=== PATIENT | male | born 1940 | race Caucasian/White ===

== ENCOUNTER → 2017-02-10 | Outpatient (CLI) | payer MEDICARE ==
--- NOTE | 2017-02-12 12:58 | SLEEP ---
DATE OF STUDY: 02/10/2017 ATTENDING PHYSICIAN: Dr. Raleigh Shook. The patient is a 76-year-old who weighs 190 pounds with a BMI of 29. The patient's [place] score was 7. Sleep study was performed at [facility]. During the night study, the patient spent 443 minutes in bed and slept for 355 minutes with a sleep efficiency of 80%. Sleep latency was 44 minutes with a REM latency of 48 minutes. Overall, sleep architecture showed increased stage I and stage II sleep, normal slow wave, and normal REM sleep. During the night of the study, the patient had no obstructive central or mixed apneas. There were no hypopneas. The patient's apnea hypopnea index was 0 per hour. Supine index was 0 per hour, and REM index was 0 per hour as well. Review of nocturnal oximetry study revealed a mean oxygen saturation 93% with the lowest of 91%. PLMS were seen at index of 2 per hour. None caused EEG arousals. The patient had muscles fasciculations throughout the study. Mean heart rate was 66 beats per minute. Normal sinus rhythm. No sustained arrhythmias were observed. IMPRESSION: 1. No clinically significant sleep disorder breathing. The patient's apnea-hypopnea index for the entire night was 0 per hour. 2. No clinically significant nocturnal hypoxia. 3. No clinically significant periodic limb movements during sleep. RECOMMENDATIONS: 1. The patient did not meet the criteria for CPAP initiation. 2. Avoid [employer] depressants. DEMI MERINO MD DR: KAITLIN/aureliano JOB#: [id number] / [id number]
== END | disposition home or self-care (01) ==
LOC: SLPLAB 18:35
PROVIDERS: ATTEND Family Medicine
DX: G47.33 Obstructive sleep apnea (adult) (pediatric) (principal)
CPT/HCPCS: 95810

== ENCOUNTER → 2018-12-23 | Outpatient (CLI) | payer MEDICARE ==
[~2018-12-23] MED LIST: ASCO10002 PO; ASPI81TA50 PO; ATOR40TA59 PO; B&C/1TAB2 PO; HYDR12.575 PO; IOHEXOL 180 MG/ML 10 ML VIAL. ONE; MECO10002 SL; MELA3TAB2 PO; METO-239 PO; MIRA50TA PO; MULT-697 PO; NITR0.6T4 SL; OMEP40CA5 PO; TRIA10.8 NS; [UNRECOGNIZED DRUG - CODE] PO; colon health; methylPREDNISolone ACETATE 40 MG/ML VIAL. ONE; methylPREDNISolone ACETATE 80 MG/ML VIAL. ONE; super b complex; tylenol arthritis PO
--- NOTE | 2018-12-24 04:31 | PAIN ---
DATE OF SERVICE: 12/23/2018 CHIEF COMPLAINT: Low back and right lower extremity pain. HISTORY OF PRESENT ILLNESS: This is a 78-year-old male who presents with history of pain in the low back, right lower extremity for about 6-8 weeks. He has had some low back pain on and off over the years, but he has significant dental procedure done was having some teeth extracted in preparation for dentures fitted and was in lying upside down for the most part by his description in a dental chair for about 4 hours and the patient reports after that time, he has significant pain in the back and radiating to the right posterior gluteus, posterior thighs, some in the calf as well with some tingling in the right foot. The patient reports it comes around the front as well in the groin at times, but mostly in the back and right leg. The patient reports it is intermittent in intensity, worse with standing, walking, standing on hard floors or changing positions, better with sitting or lying down, makes him gets up about once at night, does not affect his bowel or bladder control significantly with no incontinence and does affect his ability to walk at times, but not all the time. 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 The patient reports this has decreased his ability to perform the dancing as well as walking with greater ease but he is still doing his best to his ability. The patient has had some chiropractic treatment recently and reports it did help to a moderate extent, had no other physical therapies or other formal therapies at this time. The patient has tried Tylenol [id number], which helps to about 20% and took some morning as well. The patient describes the pain as constant, sharp, sometimes stabbing and radiating, intermittent in intensity in the right leg. The patient reports no loss of motor function, but significant fatigability of the right leg compared to the left with ambulation. The patient did have an MRI scan of the lumbar spine showing L4-L5 neural foraminal stenosis and lateral recesses at L5-S1 shows circumferential bulging annulus greater disk osteophyte complex along the lateral recess on the right with effacement of the exiting L5 nerve root and abutment of the right and left L5 nerve roots noted as well. His disability 0-10, 10 being the worst, is a 7 with family home responsibilities and recreation, 6 with social activity, 5 with sexual behavior, 1 with self-care and 1 with life support activities. PAST MEDICAL HISTORY: Significant for hypertension, coronary artery disease, Melvin's esophagus, dizziness, arthritis, kidney stones, skin cancers, prostate cancer. PREVIOUS SURGERY: Includes a right hemicolectomy 2010, hydrocele repair, right prostatectomy in 2009, also kidney stone extraction in 2006, cataract extraction bilaterally and skin cancer excisions. CURRENT MEDICATIONS: Include melatonin, B complex, multivitamins, B12, vitamin C, Tylenol, lysine, Nasacort, daily baby aspirin, hydrochlorothiazide, atorvastatin, nitroglycerin p.r.n., mirabegron, omeprazole, and metoprolol. ALLERGIES: THE PATIENT IS ALLERGIC TO CODEINE. FAMILY HISTORY: Significant for no major medical problems or conditions he is aware of. SOCIAL HISTORY: The patient drinks alcohol about 1 beer or glass of wine every 2-3 weeks. Does smoke, has for 50+ years, about half pack a day, continues to smoke, does not use any illegal, illicit or recreational drugs. He is and lives with his spouse. He is currently retired, lives locally in [place]. REVIEW OF SYSTEMS: The patient's review of systems is positive for those items mentioned in history of present illness. All systems reviewed and otherwise negative. It is complete, full and well documented on the patient's chart. PHYSICAL EXAMINATION: VITAL SIGNS: Today his blood pressure 141/89, pulse is 80, respirations 16, temperature 98.3 degrees Fahrenheit, height 5 feet 8 inches. Weight is 178 pounds. GENERAL: The patient is awake, alert, oriented, appropriate, very pleasant demeanor. HEENT: Shows normocephalic, atraumatic. Extraocular movements are intact and symmetrical. Oral cavity, mucous membranes are moist and pink. Dentition is intact. NECK: Shows anterior throat supple without palpable lymphadenopathy noted. Swallow reflex is symmetrical. CHEST: Shows normal with inspection. Breath sounds clear to auscultation bilaterally. HEART: Shows S1, S2 clear. No murmurs auscultated. ABDOMEN: Soft, nontender, nondistended. No palpable organomegaly is noted. No rebound or guarding demonstrated. BACK: Shows spine grossly in the midline, normal-appearing cervical lordotic curvature, thoracic kyphotic curvature and lumbar lordotic curvature. Lumbar paraspinous muscle shows symmetrical on inspection, with palpation shows some moderate tenderness diffusely bilaterally diffusely without specific radiation in the middle and lower distribution of paraspinous muscles. The patient shows no tenderness over the sacrum or sacroiliac regions or the spinous processes. The patient has good rotational motion of lumbar spine, both laterally greater than 10 degrees right and left as well as extension greater than 10 degrees, forward flexion 45 degrees without significant pain reported. EXTREMITIES: The patient's lower extremities show deep tendon reflexes 2+ in the patellar, 1+ tendo-calcaneus tendons are equal. Motor exam is strong with 5/5 dorsiflexion, extension, quadriceps and hamstring flexion and symmetrical. Peripheral pulses are 1+ posterior tibial. No peripheral edema is noted. Lower extremities are warm and dry to touch, equal in color and appearance. Straight leg raise noted to be negative on the left and positive on the right about 40 degrees or so with pain in the posterior gluteus and thigh with decreased knee flexion. Gaenslen's and Jose Eduardo's maneuvers are negative bilaterally. The patient is able to stand, stand on his toes without significant difficulty or loss of balance, shows a normal appearing gait, slightly shuffling but not appear to favor the right or left lower extremity significantly, not using any assistive devices. SKIN: Warm and dry, good turgor. No edema. No sores, rashes or bruising throughout. IMPRESSION: 1. This is a 78-year-old male with an approximately 6- 8-week history of increasing low back pain, radicular pain in the right lower extremity. 2. MRI scan of lumbar spine as noted. 3. Hypertension. 4. Arthritis. 5. Coronary artery disease. 6. History of prostate cancer. PLAN: Options were discussed with the patient including conservative medical management, physical therapy, interventional technique to pursue interventional techniques. We discussed a lumbar epidural steroid injection using description as well as anatomical models to describe the procedure. Risks were then discussed including, but not limited to bleeding, infection, possibility of epidural hematoma, subsequent neurologic compromise, dural puncture, headaches, spinal cord and/or nerve damage, side effects of steroid medication and poor results regarding pain control. The patient understands and wished to proceed. The patient will return to clinic in approximately 2 weeks for followup, was counseled on return appointment, activity level and side effects to be aware of. DIAGNOSIS: Lumbar radiculopathy with lumbar degenerative disk disease. PROCEDURE: Lumbar epidural steroid injection, translaminar approach L5-S1 level using C-arm fluoroscopic guidance under sterile prep and drape using local anesthetic. MEDICATION INJECTED: A total of 120 mg Depo-Medrol plus 10 mL of preservative-free normal saline and 2 mL of and Isovue for contrast. CONDITION AT DISCHARGE: Stable. The patient tolerated procedure well, had no complications. JANAK CHESTER MD DR: RIKI/aureliano JOB#: [id number] / [id number] BOB Nichole MD
== END | disposition home or self-care (01) ==
LOC: PNCL 10:09
PROVIDERS: ATTEND Anesthesiology
DX: M51.16 Intervertebral disc disorders with radiculopathy, lumbar region (principal); I10 Essential (primary) hypertension; I25.10 Atherosclerotic heart disease of native coronary artery without angina pectoris; M19.90 Unspecified osteoarthritis, unspecified site; Z85.46 Personal history of malignant neoplasm of prostate; Z85.828 Personal history of other malignant neoplasm of skin; Z87.442 Personal history of urinary calculi; Z90.49 Acquired absence of other specified parts of digestive tract; Z98.890 Other specified postprocedural states; Z98.42 Cataract extraction status, left eye; Z98.41 Cataract extraction status, right eye; Z96.1 Presence of intraocular lens; Z79.82 Long term (current) use of aspirin; Z79.899 Other long term (current) drug therapy; Z88.5 Allergy status to narcotic agent; Z72.89 Other problems related to lifestyle; F17.210 Nicotine dependence, cigarettes, uncomplicated; Z91.048 Other nonmedicinal substance allergy status
CPT/HCPCS: 62323; J1030; J1040; Q9965

== ENCOUNTER → 2019-01-09 | Outpatient (CLI) | payer MEDICARE ==
--- NOTE | 2019-01-10 01:32 | PAIN ---
DATE OF SERVICE: 01/09/2019 PROGRESS NOTE FOR PAIN CLINIC DIAGNOSES: Lumbar radiculopathy with lumbar degenerative disk disease. HISTORY OF PRESENT ILLNESS: The patient is a 78-year-old male who returns for followup status post lumbar epidural steroid injection x 1. The patient reports about 100% improvement in the low back pain, still has some pain in the mid back and overall about 75% improved. The patient reports he has been increasing his activity with greater ease and comfort, walking greater distances, sleeping better at night. The patient reports it does not awaken him from sleep, mostly noticeable when standing for prolonged periods greater than 15-20 minutes. The patient reports his pain is 8 on a scale of 10 at its worst, 5 on average, 4 at its least and is a 4 today. The patient reports it is aching and dull across the low back. No longer radiating to the lower extremities as it was previously, but significantly in the back itself. The patient reports no new motor or sensory deficits, no new bowel or bladder incontinence or other complaints. PHYSICAL EXAMINATION: VITAL SIGNS: Today, the patient's blood pressure is 152/87, pulse 81, respirations 18, temperature is 98.1 degrees Fahrenheit. Height is 5 feet 8 inches, weight is 175 pounds. GENERAL: The patient is awake, alert, oriented, appropriate, very pleasant demeanor. HEENT: Head shows normocephalic, atraumatic. Extraocular movements are intact and symmetrical. Oral cavity, mucous membranes are moist and pink. Dentition is intact. NECK: Shows anterior throat supple without palpable lymphadenopathy noted. Swallow reflex symmetrical. CHEST: Shows normal with inspection. Breath sounds are somewhat distant with cough produced with deep breathing, but no rales, rhonchi or wheezes auscultated. HEART: Shows S1, S2 clear. No murmurs auscultated. ABDOMEN: Soft, nontender, nondistended. No palpable organomegaly is noted. No rebound or guarding demonstrated. BACK: The patient's back shows spine grossly in the midline, slight exaggeration of thoracic kyphosis, some minor flattening of lumbar lordotic curvature. Lumbar paraspinous muscle shows symmetrical on inspection, some mild tenderness in the middle distribution of paraspinous muscles, but the lower distribution is much more supple and without significant tenderness on palpation. The patient has good rotational motion of lumbar spine, both laterally as well as extension and flexion without difficulty. EXTREMITIES: The patient's lower extremities show deep tendon reflexes 2+ in the patellar and 1+ in the tendo calcaneus tendons. Motor exam is strong with 5/5 dorsiflexion, extension, quadriceps and hamstring flexion equal. Peripheral pulses are 1+ posterior tibia. No peripheral edema is noted bilaterally. Options were discussed with the patient. The patient's old chart was reviewed as his current medication regimen updated. Current review of systems updated today as well. We will proceed with a second in this series of lumbar epidural steroid injection today with fluoroscopic guidance. Risks were again discussed including, but not limited to, bleeding, infection, possibility of epidural hematoma, subsequent neurological compromise, dural puncture, headaches, spinal cord and/or nerve damage, side effects of steroid medication and poor results regarding pain control. The patient understands and wished to proceed. The patient will return to the clinic in approximately 2 weeks for followup, was counseled as to return appointment, activity level and side effects to be aware of. DIAGNOSIS: Lumbar radiculopathy with lumbar degenerative disk disease. PROCEDURE: Lumbar epidural steroid injection, translaminar approach at the L2-L3 level using C-arm fluoroscopic guidance under sterile prep and drape using local anesthetic. MEDICATION INJECTED: A total of 120 mg Depo-Medrol plus 10 mL of preservative-free normal saline and 2 mL of contrast. CONDITION ON DISCHARGE: Stable. The patient tolerated the procedure well, had no complications. JANAK CHESTER MD DR: RIKI/aureliano JOB#: [id number] / [id number]
== END | disposition home or self-care (01) ==
LOC: PNCL 13:02
PROVIDERS: ATTEND Anesthesiology
DX: M51.16 Intervertebral disc disorders with radiculopathy, lumbar region (principal); Z88.5 Allergy status to narcotic agent; Z91.048 Other nonmedicinal substance allergy status
CPT/HCPCS: 62323; J1030; J1040; Q9965